=== PATIENT | female | born 1965 | race Caucasian/White ===

== ENCOUNTER 2021-11-16 16:15 | Emergency (ER) | payer OTHER ==
[~2021-11-16] VITALS: Ht 162.6 cm; Wt 90.9 kg
[2021-11-16] MEDS ORDERED: traMADol 50 MG TAB PO ONE (17:40)
[2021-11-16] MEDS ORDERED: TRAM50TA2 PO (17:53)
[2021-11-16 18:04] VITALS: BP 117/67
== END 2021-11-16 18:07 | disposition home or self-care (01) ==
LOC: M ED 16:15
DX: M25.461 Effusion, right knee (principal); S89.91XA Unspecified injury of right lower leg, initial encounter; W18.30XA Fall on same level, unspecified, initial encounter; Y92.099 Unspecified place in other non-institutional residence as the place of occurrence of the external cause; Z88.0 Allergy status to penicillin; Z88.6 Allergy status to analgesic agent; Z88.5 Allergy status to narcotic agent; Z91.89 Other specified personal risk factors, not elsewhere classified